=== PATIENT | female | born 1985 | race Caucasian/White ===

== ENCOUNTER 2016-09-23 12:39 | Emergency (ER) | payer SELFPAY ==
[2016-09-23 12:44] VITALS: TEMP 97.6; BMI 23.5
--- NOTE | 2016-09-23 12:50 | PDOC ---
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 The patient states the pain started last night. She notes she was unable to sleep because of the pain. 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 She reports she had an ultrasound done in the office and her ASSOCIATE PROFESSOR OF COUNSELING was unable to visualize the ovary. She reports the cyst has grown since her last ultrasound and the Doctor is concerned the ovary is tearing so she sent her to the ED for another ultrasound and further evaluation. The patient reports she is in excruciating pain. The patient denies chest pain, SOB The patient denies back pain, dysuria, hematuria The patient denies nausea, vomiting, diarrhea PCP: Dr. Sanket Rausch ASSOCIATE PROFESSOR OF COUNSELING: Dr. Haider <Felicia Lopes - Last Filed: 09/23/16 16:13> - General Chief Complaint: Pain Stated Complaint: PAIN, PCP SENT Time Seen by Provider: 09/23/16 12:49 Past History - Past Medical History Anemia: No Asthma: No COPD: No Suicide Attempt (Hx): No Other medical history: dermoid left ovarian - Surgical History Appendectomy: Yes - Reproductive History (#): 2 Para: 0 Cervical CA: No Dysfunctional Uterine Bleeding: No Ectopic : No Endometrial CA: No Polycystic Ovaries: No Therapeutic (s) & number: No Tubal Ligation: No Spontaneous : 0 - Immunization History Immunization Up to Date: Yes - Psycho/Social/Smoking Cessation Hx Anxiety: No Suicidal Ideation: No Smoking History: Never smoked Have you smoked in the past 12 months: Yes Number of Cigarettes Smoked Daily: 0 If you are a former smoker, when did you quit?: 05/25/14 Information on smoking cessation initiated: No 'Breaking Loose' booklet given: 04/20/14 Hx Alcohol Use: No Drug/Substance Use Hx: No Substance Use Type: None Hx Substance Use Treatment: No <Aram Gómez - Last Filed: 09/23/16 15:44> <Felicia Lopes - Last Filed: 09/23/16 16:13> - Past Medical History Allergies/Adverse Reactions: Allergies Allergy/AdvReac Type Severity Reaction Status Date / Time No Known Drug Allergies Allergy Verified 09/23/16 12:41 Home Medications: Ambulatory Orders Ibuprofen 800 mg PO TID #30 tablet 09/23/16 Ondansetron [Zofran *Odt*] 8 mg SL TID #30 od.tablet MDD 3 09/23/16 Oxycodone HCl/Acetaminophen [Percocet 5-325 mg Tablet] 1 - 2 tab PO Q6H #20 tablet MDD 4 09/23/16 Review of Systems - Review of Systems Able to Perform ROS?: Yes Comments:: 09/23/16 13:26 GENERAL/CONSTITUTIONAL: No fever or chills. No weakness. HEAD, EYES, EARS, NOSE AND THROAT: No change in vision. No ear pain or discharge. No sore throat. CARDIOVASCULAR: No chest pain or shortness of breath. RESPIRATORY: No cough, wheezing, or hemoptysis. GASTROINTESTINAL: +LLQ abdominal pain. No nausea, vomiting, diarrhea or constipation. GENITOURINARY: No dysuria, frequency, or change in urination. MUSCULOSKELETAL: No joint or muscle swelling or pain. No neck or back pain. SKIN: No rash NEUROLOGIC: No headache, vertigo, loss of consciousness, or change in strength/ sensation. ENDOCRINE: No increased thirst. No abnormal weight change. HEMATOLOGIC/LYMPHATIC: No anemia, easy bleeding, or history of blood clots. ALLERGIC/IMMUNOLOGIC: No hives or skin allergy. <Felicia Lopes - Last Filed: 09/23/16 16:13> *Physical Exam - Vital Signs Last Vital Signs Temp Pulse Resp BP Pulse Ox 97.6 F 97 H 18 153/92 100 09/23/16 12:41 09/23/16 12:41 09/23/16 12:41 09/23/16 12:41 09/23/16 12:41 <Aram Gómez - Last Filed: 09/23/16 15:44> - Vital Signs Last Vital Signs Temp Pulse Resp BP Pulse Ox 97.6 F 97 H 18 153/92 100 09/23/16 12:41 09/23/16 12:41 09/23/16 12:41 09/23/16 12:41 09/23/16 12:41 - Physical Exam Comments: 09/23/16 13:26 GENERAL: Awake, alert, and fully oriented, in no acute distress HEAD: No signs of trauma EYES: PERRLA, EOMI, sclera anicteric, conjunctiva clear ENT: Auricles normal inspection, hearing grossly normal, nares patent, oropharynx clear without exudates. Moist mucosa NECK: Normal ROM, supple, no lymphadenopathy, JVD, or masses LUNGS: Breath sounds equal, clear to auscultation bilaterally. No wheezes, and no crackles HEART: Regular rate and rhythm, normal S1 and S2, no murmurs, rubs or gallops ABDOMEN: +Mild tenderness to palpation to the LLQ. Soft, nontender, normoactive bowel sounds. No guarding, no rebound. No masses EXTREMITIES: Normal range of motion, no edema. No clubbing or cyanosis. No cords, erythema, or tenderness NEUROLOGICAL: Cranial nerves II through XII grossly intact. Normal speech, normal gait SKIN: Warm, Dry, normal turgor, no rashes or lesions noted. <Felicia Lopes - Last Filed: 09/23/16 16:13> ED Treatment Course - RADIOLOGY Radiograph Interpretation: 09/23/16 15:05 Pelvis ultrasound, transvesical and transvaginal. Compared to prior examination dated 05/25/2016 The uterus is anteverted measuring 7.6 x 3.7 cm endometrial stripe is within normal limits in thickness measuring 5 mm. The right ovary measures 2.4 x 2 cm and it appears unremarkable with normal vascular flow. In the left adnexa, the left ovary measures 4.3 x 3.5 cm with a cyst measuring 3.5 x 2.7 cm and a complex hypoechoic and echogenic masslike lesion measuring 2.7 x 2 cm that is suggestive of a dermoid. There is normal peripheral vascular flow in the left ovary No free fluid in the cul-de-sac IMPRESSION: Complex partially echogenic left ovarian mass measuring 2.7 x 2 cm compatible with previously described dermoid that was also seen on prior CT scan of the abdomen dated 2015. Left ovarian cyst measuring 3.5 x 2.7 cm. Normal vascular flow without evidence of torsion. Normal-appearing uterus and right ovary Reported By: Mona Darden MD 09/23/16 [id number] <Felicia Lopes - Last Filed: 09/23/16 16:13> Medical Decision Making - Medical Decision Making 09/23/16 15:43 Multiple attempts were made to contact Dr. Kalina Haider to convey the results of the ultrasound. No answer. Will DC home and have patient follow up with her tomorrow. 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 The patient reports her pain is significant while in the ED. The plan for the patient is to order a pelvic ultrasound, transvesical and transvaginal ultrasound. The ultrasound shows left ovarian cyst measuring 3.5 x 2.7 cm. Normal vascular flow without evidence of torsion. Normal-appearing uterus and right ovary. Dr. Haider called back and would the patient to follow up with the clinic. <Felicia Lopes - Last Filed: 09/23/16 16:13> *DC/Admit/Observation/Transfer - Discharge Dispostion Admit: No - Attestations Physician Attestion: 09/23/16 12:49 I, Dr. Aram Gómez, attest that this document has been prepared under my direction and personally reviewed by me in its entirety. I further attest, that it accurately reflects all work, treatment, procedures and medical decision -making performed by me. <Aram Gómez - Last Filed: 09/23/16 15:44> - Attestations Scribe Attestion: 09/23/16 13:13 Documentation prepared by Felicia Lopes, acting as medical office technologist for Aram Gómez MD/DO. <Felicia Lopes - Last Filed: 09/23/16 16:13> Diagnosis at time of Disposition: Dermoid cyst - Discharge Dispostion Disposition: HOME Condition at time of disposition: Good - Prescriptions Prescriptions: Ibuprofen 800 mg PO TID #30 tablet Oxycodone HCl/Acetaminophen [Percocet 5-325 mg Tablet] 1 - 2 tab PO Q6H #20 tablet MDD 4 Ondansetron [Zofran *Odt*] 8 mg SL TID #30 od.tablet MDD 3 - Referrals Referrals: Sanket Rasuch MD [Primary Care Provider] -
[2016-09-23] MEDS ORDERED: OXYCODONE/APAP 5/325MG COMBO TABLET PO ONE (12:59)
[2016-09-23] MEDS ORDERED: ONDANSETRON *ODT* 4 MG TABLET SL ONE (12:59)
[2016-09-23 13:29] LABS: URINE APPEARANCE CLEAR; URINE BILIRUBIN NEGATIVE (NEGATIVE); URINE BLOOD NEGATIVE (NEGATIVE); URINE COLOR STRAW; URINE GLUCOSE (UA) NEGATIVE (NEGATIVE); URINE KETONE NEGATIVE (NEGATIVE); URINE LEUK ESTERASE NEGATIVE (NEGATIVE); URINE NITRITE NEGATIVE (NEGATIVE); URINE PROTEIN NEGATIVE (NEGATIVE); URINE UROBILINOGEN NEGATIVE E.U./dl (0.2-1.0)
[2016-09-23] MEDS ORDERED: OXYCODONE/APAP 5/325MG COMBO TABLET ONE (13:33)
[2016-09-23] MEDS ORDERED: ONDANSETRON *ODT* 4 MG TABLET ONE (13:34)
[2016-09-23 14:56] VITALS: BP 120/80; PULSE 72
[2016-09-23] MEDS ORDERED: KETOROLAC TROMETHAMINE 60 MG/2 ML VIAL IM ONE (15:32)
[2016-09-23] MEDS ORDERED: KETOROLAC TROMETHAMINE 60 MG/2 ML VIAL ONE (15:37)
== END 2016-09-23 16:13 | disposition home or self-care (01) ==
LOC: JER 12:39
PROC: 3E0233Z Introduction of Anti-inflammatory into Muscle, Percutaneous Approach (ICD-10-PCS; principal; 2016-09-23)
DX: D27.1 Benign neoplasm of left ovary (principal)
CPT/HCPCS: 76830-TC; 76856-TC; 81003; 84703; 99282-25

== ENCOUNTER 2016-10-23 18:29 | Emergency (ER) | payer OTHER ==
[2016-10-23 18:40] VITALS: BMI 23.5
--- NOTE | 2016-10-23 19:45 | PDOC ---
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 Patient states she is experiencing nausea, and dysuria secondary to the pain. She states she has taken Tylenol PM and Motrin with no alleviation. She denies urinary frequency, urgency. SHe denies fever, chills, vomiting, diarrhea, hematochezia. Patient was here last month for similar pain. She had an ultrasound that showed a 3.5 x 2.7 cm left ovarian cyst. She states her PCP had done surgery to partly remove her left ovarian cyst but not the whoel ovary due to insurance issues. Surgical Hx: Appendectomy <Kade Jane - Last Filed: 10/23/16 20:12> <Chanelle Sykes - Last Filed: 10/23/16 23:36> - General Chief Complaint: Pain Stated Complaint: ABD PAIN Time Seen by Provider: 10/23/16 19:36 Past History <Kade Jane - Last Filed: 10/23/16 20:12> - Past Medical History Anemia: No Asthma: No COPD: No Suicide Attempt (Hx): No Other medical history: lt ovary dermoid cyst - Surgical History Appendectomy: Yes - Reproductive History (#): 2 Para: 0 Cervical CA: No Dysfunctional Uterine Bleeding: No Ectopic : No Endometrial CA: No Polycystic Ovaries: No Therapeutic (s) & number: No Tubal Ligation: No Spontaneous : 0 - Immunization History Immunization Up to Date: Yes - Psycho/Social/Smoking Cessation Hx Anxiety: No Suicidal Ideation: No Smoking History: Never smoked Have you smoked in the past 12 months: No Number of Cigarettes Smoked Daily: 0 If you are a former smoker, when did you quit?: 05/25/14 Information on smoking cessation initiated: No 'Breaking Loose' booklet given: 04/20/14 Hx Alcohol Use: No Drug/Substance Use Hx: No Substance Use Type: None Hx Substance Use Treatment: No <Chanelle Sykes - Last Filed: 10/23/16 23:36> - Past Medical History Allergies/Adverse Reactions: Allergies Allergy/AdvReac Type Severity Reaction Status Date / Time No Known Drug Allergies Allergy Verified 10/23/16 18:36 Home Medications: Ambulatory Orders NK [No Known Home Medication] 10/23/16 Review of Systems - Review of Systems Able to Perform ROS?: Yes Comments:: 10/23/16 20:12 GENERAL/CONSTITUTIONAL: No fever or chills. No weakness. HEAD, EYES, EARS, NOSE AND THROAT: No change in vision. No ear pain or discharge. No sore throat. CARDIOVASCULAR: No chest pain or shortness of breath. RESPIRATORY: No cough, wheezing, or hemoptysis. GASTROINTESTINAL: + nausea. No vomiting, diarrhea or constipation. GENITOURINARY: + dysuria. LLQ quadrant pain. No frequency, or change in urination. MUSCULOSKELETAL: No joint or muscle swelling or pain. No neck or back pain. SKIN: No rash NEUROLOGIC: No headache, vertigo, loss of consciousness, or change in strength/ sensation. ENDOCRINE: No increased thirst. No abnormal weight change. HEMATOLOGIC/LYMPHATIC: No anemia, easy bleeding, or history of blood clots. ALLERGIC/IMMUNOLOGIC: No hives or skin allergy. <Kade Jane - Last Filed: 10/23/16 20:12> *Physical Exam - Vital Signs Last Vital Signs Temp Pulse Resp BP Pulse Ox 97.8 F 100 H 18 140/79 100 10/23/16 18:37 10/23/16 18:37 10/23/16 18:37 10/23/16 18:37 10/23/16 18:37 - Physical Exam Comments: 10/23/16 20:12 GENERAL: Awake, alert, and fully oriented, in no acute distress HEAD: No signs of trauma EYES: PERRLA, EOMI, sclera anicteric, conjunctiva clear ENT: Auricles normal inspection, hearing grossly normal, nares patent, oropharynx clear without exudates. Moist mucosa NECK: Normal ROM, supple, no lymphadenopathy, JVD, or masses LUNGS: Breath sounds equal, clear to auscultation bilaterally. No wheezes, and no crackles HEART: Regular rate and rhythm, normal S1 and S2, no murmurs, rubs or gallops ABDOMEN: Minimal LLQ tenderness. Soft, normoactive bowel sounds. No guarding, no rebound. No masses EXTREMITIES: Normal range of motion, no edema. No clubbing or cyanosis. No cords, erythema, or tenderness NEUROLOGICAL: Cranial nerves II through XII grossly intact. Normal speech, normal gait SKIN: Warm, Dry, normal turgor, no rashes or lesions noted. <Kade Jane - Last Filed: 10/23/16 20:12> - Vital Signs Last Vital Signs Temp Pulse Resp BP Pulse Ox 97.8 F 100 H 18 140/79 100 10/23/16 18:37 10/23/16 18:37 10/23/16 18:37 10/23/16 18:37 10/23/16 18:37 <Chanelle Sykes - Last Filed: 10/23/16 23:36> ED Treatment Course - LABORATORY CBC & Chemistry Diagram: 10/23/16 20:00 10/23/16 20:00 <Chanelle Sykes - Last Filed: 10/23/16 23:36> Medical Decision Making - Medical Decision Making 10/23/16 21:30 Pt comes with LLQ pain; she has slight dysuria, but she states that this is the pain that she gets with her ovarian cysts. She has a PMHx of ovarian cysts and she states that she has an appointment scheduled with her LOCOMOTIVE ENGINEER for removal of the cyst next week, but she is in pain so she came to the ER today for evaluation. Pt has nausea, but no vomiting and no fever and no flank pain. She has a normal exam. Minimal LLQ pain, no rebound and no guarding. UA is normal. Chem and WBC also normal. Awaiting results of her sonogram. 10/23/16 23:35 Patient Name: Yanet Begum THIS IS A PRELIMINARY REPORT FROM [facility] DATE OF SERVICE: 2016-10-23 20:38:14.0 IMAGES: 27 EXAM: PELVIS ULTRASOUND AND OVARIAN DUPLEX TRANSABDOMINAL TECHNIQUE: Transabdominal pelvic sonography with duplex sonography performed of the ovaries. HISTORY: Rule out left ovarian cyst. Pain. Rule out torsion. COMPARISON: CT of the abdomen and pelvis dated . FINDINGS: UTERUS: Uterus is anteverted. Uterus measures 7.2 x 3.9 x 5.2 cm. No uterine mass is seen. ENDOMETRIUM: Endometrial canal measures 0.6 cm in thickness. No endometrial mass or fluid seen. OVARIES: Right ovary measures 2.7 x 1.8 x 2.7 cm. Left ovary measures 4.8 x 2.7 x 4.5 cm. Left ovary contains a complex cyst with internal fatty density measuring 2.9 x 2.7 x 3.7 cm in size Appropriate vascular Doppler flow is documented to both ovaries. PELVIS: There is no significant free fluid noted in the cul de sac. IMPRESSION: 1. Left ovarian dermoid. This is noted in retrospect on prior CT of 06/02/2016. 2. No evidence of ovarian torsion. THIS DOCUMENT HAS BEEN ELECTRONICALLY SIGNED <Chanelle Sykes - Last Filed: 10/23/16 23:36> *DC/Admit/Observation/Transfer - Attestations Scribe Attestion: 10/23/16 20:15 Documentation prepared by Kade Jane, acting as medical equipment technician for Chanelle Sykes MD. <Kade Jane - Last Filed: 10/23/16 20:12> - Discharge Dispostion Admit: No <Chanelle Sykes - Last Filed: 10/23/16 23:36> Diagnosis at time of Disposition: Ovarian cyst - Discharge Dispostion Disposition: HOME Condition at time of disposition: Stable - Referrals Referrals: Sanket Rausch MD [Primary Care Provider] - - Patient Instructions Printed Discharge Instructions: Ovarian Cyst - Post Discharge Activity Work/School Note: Back to Work
[2016-10-23] MEDS ORDERED: morphine CARPU-JECT 2 MG/1 ML DISP.SYRIN IVPUSH ONE (19:51)
[2016-10-23] MEDS ORDERED: morphine CARPU-JECT 2 MG/1 ML DISP.SYRIN ONE (20:03)
[2016-10-23 20:17] LABS: BASOPHIL 0.8 % (0-2.0); EOSINOPHIL 2.4 % (0-4.5); MCH 31.4 pg (25.7-33.7); MCHC 35.1 g/dl (32.0-36.0); MEAN CELL VOLUME 89.3 fl (80-96); MEAN PLT VOLUME 7.2 fl (7.5-11.1); PLATELET COUNT 278 K/MM3 (134-434); RDW 11.9 % (11.6-15.6); WHITE BLOOD COUNT 6.8 K/mm3 (4.0-10.0)
[2016-10-23 20:18] LABS: URINE APPEARANCE CLEAR; URINE BILIRUBIN NEGATIVE (NEGATIVE); URINE BLOOD NEGATIVE (NEGATIVE); URINE COLOR LTYELLOW; URINE GLUCOSE (UA) NEGATIVE (NEGATIVE); URINE KETONE NEGATIVE (NEGATIVE); URINE LEUK ESTERASE NEGATIVE (NEGATIVE); URINE NITRITE NEGATIVE (NEGATIVE); URINE PROTEIN NEGATIVE (NEGATIVE); URINE UROBILINOGEN 2.0 E.U/dl E.U./dl (0.2-1.0)
[2016-10-23 20:39] LABS: ALBUMIN 3.9 g/dl (3.4-5.0); ALK PHOS 79 U/L (45-117); ANION GAP 10 (8-16); BILIRUBIN,TOTAL 0.4 mg/dL (0.2-1.0); CALCIUM 8.3 mg/dL (8.5-10.1); CO2 26 mmol/L (21-32); GLUCOSE,RANDOM 94 mg/dL (74-106); SGOT/AST 17 U/L (15-37); SGPT/ALT 26 U/L (12-78); TOT PROT 6.9 g/dl (6.4-8.2)
[2016-10-23] MEDS ORDERED: KETOROLAC TROMETHAMINE 30 MG/1 ML VIAL ONE (22:45)
[2016-10-23] MEDS ORDERED: KETOROLAC TROMETHAMINE 30 MG/1 ML VIAL IVPUSH ONE (22:45)
[2016-10-23] MEDS ORDERED: SODIUM CHLORIDE 0.9% 500 ML INFUS.BAG IV ONE (22:45)
[2016-10-23 23:39] VITALS: BP 114/69; PULSE 88; TEMP 97.9
== END 2016-10-23 23:39 | disposition home or self-care (01) ==
LOC: JER 18:29
PROC: 3E033NZ Introduction of Analgesics, Hypnotics, Sedatives into Peripheral Vein, Percutaneous Approach (ICD-10-PCS; principal; 2016-10-23)
PROC: 3E0333Z Introduction of Anti-inflammatory into Peripheral Vein, Percutaneous Approach (ICD-10-PCS; 2016-10-23)
DX: N83.202 Unspecified ovarian cyst, left side (principal)
CPT/HCPCS: 36415; 76856-TC; 80053; 81003; 85025; 96374; 96375; 99283-25

== ENCOUNTER 2017-07-31 20:04 | Emergency (ER) | payer OTHER ==
[2017-07-31 20:16] VITALS: BP 121/79; PULSE 100; TEMP 98.9; BMI 23.5
--- NOTE | 2017-07-31 21:26 | PDOC ---
Attending Attestation - Resident Resident Name: Arvind Stephen - ED Attending Attestation I have performed the following: I have examined & evaluated the patient, The case was reviewed & discussed with the resident, I agree w/resident's findings & plan - HPI HPI: 07/31/17 23:00 Pt has been eating salads and veggies. She has gas. and trapped gas. No rebound and minimal guarding - Physicial Exam PE: 07/31/17 23:04 Agree with resident exam. Pt has gassy pain. - Medical Decision Making 07/31/17 22:55 Patient Name: KB ESTRADA THIS IS A PRELIMINARY REPORT FROM [facility] DATE OF SERVICE: 2017-07-31 21:17:29 IMAGES: 50 EXAM: Ultrasound abdomen, right upper quadrant HISTORY: Right upper quadrant pain COMPARISON: None. FINDINGS: 1. The posterior body and tail of the pancreas is not well-visualized due to artifact. The visualized portion of the pancreas is unremarkable. 2. The abdominal aorta is normal caliber. 3. No evidence of hydronephrosis or urinary tract calculi. 4. No demonstration of gallstones and no ultrasound evidence of acute cholecystitis. 5. The common bile duct is normal caliber. 6. The liver is unremarkable in appearance. 07/31/17 23:04 labs normal. Pt will be treated with lactulose and home with miralax.
[2017-07-31 21:31] LABS: BASO % 1.5 % (0-2.0); HEMATOCRIT 42.2 % (32.4-45.2); HEMOGLOBIN 14.5 GM/dL (10.7-15.3); LYMPH % 53.2 % (8-40); MCH 31.6 pg (25.7-33.7); MCHC 34.5 g/dl (32.0-36.0); MEAN CELL VOLUME 91.8 fl (80-96); MEAN PLT VOLUME 7.3 fl (7.5-11.1); MONO % 7.6 % (3.8-10.2); NEUT % 34.7 % (42.8-82.8); PLATELET COUNT 310 K/MM3 (134-434); RDW 12.4 % (11.6-15.6); WHITE BLOOD COUNT 5.7 K/mm3 (4.0-10.0)
[2017-07-31 21:34] LABS: URINE APPEARANCE CLOUDY; URINE BILIRUBIN NEGATIVE (NEGATIVE); URINE BLOOD NEGATIVE (NEGATIVE); URINE COLOR YELLOW; URINE GLUCOSE (UA) NEGATIVE (NEGATIVE); URINE KETONE NEGATIVE (NEGATIVE); URINE LEUK ESTERASE NEGATIVE (NEGATIVE); URINE NITRITE NEGATIVE (NEGATIVE)
--- NOTE | 2017-07-31 21:37 | PDOC ---
History of Present Illness - General Chief Complaint: Pain Stated Complaint: PAIN Time Seen by Provider: 07/31/17 20:43 History Source: Patient Exam Limitations: No Limitations - History of Present Illness Initial Comments: 07/31/17 21:27 The patient is a 32F with a PMH of ovarian cyst removal who presents with 3 days of abdominal pain. The patient states that she began having RUQ pain on Tuesday that was worse after food. On Tuesday the pain continued and she tried taking acetaminophen and ibuprofen with no relief. She woke up this morning and has had consistent pain that is not relenting. She describes the pain as 9/10 stabbing pain which starts in her RUQ and radiates to her back and LUQ. The pain is worse with food and is not relieved by anything. It is now a constant pain. Past History - Past Medical History Allergies/Adverse Reactions: Allergies Allergy/AdvReac Type Severity Reaction Status Date / Time No Known Drug Allergies Allergy Verified 11/04/16 06:43 Home Medications: Ambulatory Orders Acetaminophen [Tylenol -] 1,000 mg PO PRN PRN 11/01/16 Polyethylene Glycol 3350 [Miralax (For Bowel Prep) -] 17 gm PO DAILY #1 bottle 07/31/17 Anemia: No Asthma: No COPD: No - Surgical History Appendectomy: Yes - Reproductive History (#): 2 Para: 0 Cervical CA: No Dysfunctional Uterine Bleeding: No Ectopic : No Endometrial CA: No Polycystic Ovaries: No Therapeutic (s) & number: No Tubal Ligation: No Spontaneous : 0 - Immunization History Immunization Up to Date: Yes - Suicide/Smoking/Psychosocial Hx Smoking History: Former smoker Have you smoked in the past 12 months: No Number of Cigarettes Smoked Daily: 0 If you are a former smoker, when did you quit?: 05/25/14 Information on smoking cessation initiated: No 'Breaking Loose' booklet given: 04/20/14 Hx Alcohol Use: No Drug/Substance Use Hx: No Substance Use Type: None Hx Substance Use Treatment: No Review of Systems - Review of Systems Able to Perform ROS?: Yes Comments:: 07/31/17 21:42 GENERAL/CONSTITUTIONAL: No fever or chills. No weakness. HEAD, EYES, EARS, NOSE AND THROAT: No change in vision. No ear pain or discharge. No sore throat. GASTROINTESTINAL: Positive for abdominal pain and diarrhea. No nausea, vomiting , or constipation. GENITOURINARY: No dysuria, frequency, hematuria, or change in urination. CARDIOVASCULAR: No chest pain, palpitations, or lightheadedness. RESPIRATORY: No cough, wheezing, shortness of breath, or hemoptysis. MUSCULOSKELETAL: No joint or muscle swelling or pain. No neck or back pain. SKIN: No rash or lesions. NEUROLOGIC: No headache, numbness, tingling, weakness, loss of consciousness, or change in strength/sensation. ENDOCRINE: No increased thirst. No abnormal weight change. HEMATOLOGIC/LYMPHATIC: No anemia, easy bleeding, or history of blood clots. ALLERGIC/IMMUNOLOGIC: No hives or skin allergy. Is the patient limited Kiswahili proficient: No *Physical Exam - Vital Signs Last Vital Signs Temp Pulse Resp BP Pulse Ox 98.9 F 100 H 16 121/79 100 07/31/17 20:12 07/31/17 20:12 07/31/17 20:12 07/31/17 20:12 07/31/17 20:12 - Physical Exam Comments: 07/31/17 21:42 GENERAL: Well developed, well nourished. Awake and alert. No acute distress. HEENT: Normocephalic, atraumatic. Hearing grossly normal. Moist mucous membranes. NECK: Supple. Full ROM. No JVD. CARDIOVASCULAR: Regular rate and rhythm. No murmurs, rubs, or gallops. Distal pulses are 2+ and symmetric. PULMONARY: No evidence of respiratory distress. Lungs clear to auscultation bilaterally. No wheezing, rales or rhonchi. ABDOMINAL: Soft. Tender to palpation over RUQ and LUQ. Positive mcgrath's sign. Non-distended. No rebound or guarding. GENITOURINARY: No CVA tenderness bilaterally. MUSCULOSKELETAL: Normal range of motion at all joints. No bony deformities or tenderness. EXTREMITIES: No cyanosis. No clubbing. No edema. No calf tenderness. SKIN: Warm and dry. Normal capillary refill. No rashes. No jaundice. NEUROLOGICAL: Alert, awake, appropriate. Cranial nerves 2-12 intact. Normal speech. Gait is normal without ataxia. PSYCHIATRIC: Cooperative. Good eye contact. Appropriate mood and affect. ED Treatment Course - LABORATORY CBC & Chemistry Diagram: 07/31/17 21:16 07/31/17 21:16 - RADIOLOGY Radiology Studies Ordered: Category Date Time Status ABDOMEN US -LIMITED [US] Stat Ultrasound 07/31/17 21:08 Ordered Medical Decision Making - Medical Decision Making 07/31/17 21:43 The patient is a 32F with a PMH of ovarian cyst removal and appendectomy who presents to the ED with complaints of RUQ pain which radiates to her LUQ. On my differential is cholecystitis and duodenal ulcer. LMP ended on Tuesday so I have a lower suspicion for ectopic . Pending labs and RUQ U/S. 07/31/17 22:54 US negative for acute cholecystitis. Toradol given for pain control. CBC and CMP WNL. UA showing 2.0 urobilinogen. 07/31/17 23:12 Discussed with attending, who believes it is abdominal gas. Will give lactulose and d/c with miralax. *DC/Admit/Observation/Transfer Diagnosis at time of Disposition: Abdominal pain Qualifiers: Abdominal location: right upper quadrant Qualified Code(s): R10.11 - Right upper quadrant pain - Discharge Dispostion Disposition: HOME Condition at time of disposition: Stable Admit: No - Referrals Referrals: Sanket Rausch MD [Primary Care Provider] - - Patient Instructions Printed Discharge Instructions: Intestinal Gas (Alternative Therapy) Additional Instructions: Please return to the ER if symptoms persist, worsen, or new symptoms arise. Please follow up with your primary care physician in 2-3 days. Please return to the ER if you have any signs or symptoms of chest pain, shortness of breath, uncontrollable fever, chills, nausea, vomiting, numbness, tingling, or weakness in any part of your body, changes in vision, or slurred speech. Please take your medications as prescribed. - Post Discharge Activity
[2017-07-31 21:58] LABS: URINE PROTEIN 1+ (NEGATIVE)
[2017-07-31 22:04] LABS: ALBUMIN 4.2 g/dl (3.4-5.0); ALK PHOS 71 U/L (45-117); ANION GAP 9 (8-16); BILIRUBIN,TOTAL 0.2 mg/dL (0.2-1.0); BLOOD UREA NITROGEN 13 mg/dL (7-18); CALCIUM 8.7 mg/dL (8.5-10.1); CHLORIDE 105 mmol/L (98-107); CO2 26 mmol/L (21-32); CREATININE 0.8 mg/dL (0.55-1.02); EPI CELLS RARE /HPF (FEW); GLUCOSE,RANDOM 86 mg/dL (74-106); LIPASE 215 U/L (73-393); POTASSIUM 3.9 mmol/L (3.5-5.1); SGOT/AST 15 U/L (15-37); SGPT/ALT 18 U/L (12-78); SODIUM 140 mmol/L (136-145); TOT PROT 7.3 g/dl (6.4-8.2); URINE BACTERIA RARE /hpf (NONE SEEN)
[2017-07-31] MEDS ORDERED: KETOROLAC TROMETHAMINE 30 MG/1 ML VIAL ONE (22:43)
[2017-07-31] MEDS ORDERED: LACTULOSE 20 GM/30 ML UDC (FOR ORAL USE ONLY) PO ONE (23:01)
[2017-07-31] MEDS ORDERED: LACTULOSE 20 GM/30 ML UDC (FOR ORAL USE ONLY) ONE (23:23)
== END 2017-07-31 23:19 | disposition home or self-care (01) ==
LOC: JER 20:04
DX: R10.11 Right upper quadrant pain (principal); R14.1 Gas pain
CPT/HCPCS: 36415; 76705-TC; 80053; 81003; 81015; 83690; 84703; 85025; 99281-25

== ENCOUNTER 2017-09-13 20:30 | Emergency (ER) | payer BC, OTHER ==
--- NOTE | 2017-09-13 20:43 | PDOC ---
Rapid Medical Evaluation Time Seen by Provider: 09/13/17 20:36 Medical Evaluation: Allergies Allergy/AdvReac Type Severity Reaction Status Date / Time No Known Drug Allergies Allergy Verified 11/04/16 06:43 09/13/17 20:41 I have performed a brief in-person evaluation of this patient. The patient presents with a chief complaint of: vaginal bleeding and fever s/p spontaneous Pertinent physical exam findings: ABD SNTND. I have ordered the following: labs The patient will proceed to the ED for further evaluation. Discharge Disposition - Diagnosis Vaginal bleeding - Referrals - Patient Instructions - Post Discharge Activity
[2017-09-13 20:50] VITALS: BP 121/75; PULSE 128; TEMP 101.5; BMI 23.5
[2017-09-13 21:11] LABS: BASO % 0.3 % (0-2.0); EOS % 0.6 % (0-4.5); HEMATOCRIT 41.7 % (32.4-45.2); HEMOGLOBIN 13.8 GM/dL (10.7-15.3); LYMPH % 5.7 % (8-40); MCH 30.6 pg (25.7-33.7); MEAN CELL VOLUME 92.7 fl (80-96); MEAN PLT VOLUME 7.5 fl (7.5-11.1); MONO % 3.5 % (3.8-10.2); NEUT % 89.9 % (42.8-82.8); PLATELET COUNT 290 K/MM3 (134-434); RDW 12.1 % (11.6-15.6); WHITE BLOOD COUNT 8.4 K/mm3 (4.0-10.0)
[2017-09-13 21:31] LABS: URINE APPEARANCE CLEAR; URINE BILIRUBIN NEGATIVE (NEGATIVE); URINE BLOOD 1+ (NEGATIVE); URINE COLOR YELLOW; URINE GLUCOSE (UA) NEGATIVE (NEGATIVE); URINE KETONE NEGATIVE (NEGATIVE); URINE LEUK ESTERASE TRACE (NEGATIVE); URINE NITRITE NEGATIVE (NEGATIVE); URINE UROBILINOGEN 4.0 E.U/dl mg/dL (0.2-1.0)
[2017-09-13 21:36] LABS: URINE PROTEIN 1+ (NEGATIVE)
[2017-09-13 21:37] LABS: EPI CELLS FEW /HPF (FEW); URINE MUCUS RARE
[2017-09-13 21:44] LABS: ALBUMIN 4.3 g/dl (3.4-5.0); ANION GAP 8 (8-16); BILIRUBIN,TOTAL 0.6 mg/dL (0.2-1.0); BLOOD UREA NITROGEN 9 mg/dL (7-18); CALCIUM 8.4 mg/dL (8.5-10.1); CHLORIDE 103 mmol/L (98-107); CO2 25 mmol/L (21-32); CREATININE 0.7 mg/dL (0.55-1.02); GLUCOSE,RANDOM 102 mg/dL (74-106); POTASSIUM 3.9 mmol/L (3.5-5.1); SGOT/AST 13 U/L (15-37); SGPT/ALT 13 U/L (12-78); SODIUM 136 mmol/L (136-145); TOT PROT 7.3 g/dl (6.4-8.2)
[2017-09-13] MEDS ORDERED: SODIUM CHLORIDE 1,000 ML IV STA (21:54)
[2017-09-13 22:00] LABS: ALK PHOS 60 U/L (45-117)
--- NOTE | 2017-09-13 22:00 | PDOC ---
History of Present Illness - General History Source: Patient, Significant Other Exam Limitations: No Limitations - History of Present Illness Initial Comments: 09/13/17 22:05 The patient is a 32 year old female , with a significant past medical history of ovarian cyst removal, who presents to the emergency department with, nausea with emesis, fever (101.6 F), chills, vaginal bleeding and pelvic pain for approx. one day. The patient reports the pelvic pain radiates around to her back and down her legs bilaterally. The patient reports she has been feeling fine up until this morning. The patient reports she had a recent terminated this past September 09 (4 days ago) at 6 weeks and 2 days into . The patient reports she went to an urgent care today prior to arrival who stated she did not have the flu and advised her to come to the ED for evaluation. She denies recent dysuria, frequency, or urgency. She denies recent chest pain or shortness of breath. She denies recent cough or sore throat. She denies recent injury or trauma. Allergies: NKA Social History: Ex-smoker. . Surgical History: Left ovarian cystectomy. Appendectomy. Primary Care Physician: Dr. Sanket Rausch <Valentin Velazquez - Last Filed: 09/14/17 00:53> <Liliane Donohue - Last Filed: 09/14/17 03:04> - General Chief Complaint: Pain Stated Complaint: VAGINAL BLEEDING Time Seen by Provider: 09/13/17 20:36 Past History <Valentin Velazquez - Last Filed: 09/14/17 00:53> - Past Medical History Anemia: No Asthma: No COPD: No - Surgical History Appendectomy: Yes - Reproductive History (#): 2 Para: 0 Cervical CA: No Dysfunctional Uterine Bleeding: No Ectopic : No Endometrial CA: No Polycystic Ovaries: No Therapeutic (s) & number: No Tubal Ligation: No Spontaneous : 0 - Immunization History Immunization Up to Date: Yes - Suicide/Smoking/Psychosocial Hx Smoking History: Never smoked Have you smoked in the past 12 months: No Number of Cigarettes Smoked Daily: 0 If you are a former smoker, when did you quit?: 05/25/14 Information on smoking cessation initiated: No 'Breaking Loose' booklet given: 04/20/14 Hx Alcohol Use: No Drug/Substance Use Hx: No Substance Use Type: None Hx Substance Use Treatment: No <Liliane Donohue - Last Filed: 09/14/17 03:04> - Past Medical History Allergies/Adverse Reactions: Allergies Allergy/AdvReac Type Severity Reaction Status Date / Time No Known Drug Allergies Allergy Verified 09/13/17 20:47 Home Medications: Ambulatory Orders Acetaminophen [Tylenol -] 1,000 mg PO PRN PRN 11/01/16 Polyethylene Glycol 3350 [Miralax (For Bowel Prep) -] 17 gm PO DAILY #1 bottle 07/31/17 Doxycycline Monohydrate [Monodox] 100 mg PO Q12H #14 capsule 09/14/17 Review of Systems - Review of Systems Comments:: 09/13/17 22:11 CONSTITUTIONAL: Absent: +Fever. +Chills. No fatigue EYES: Absent: visual changes ENT: Absent: ear pain, no sore throat CARDIOVASCULAR: Absent: chest pain, no palpitations RESPIRATORY: Absent: cough, no SOB GI: Present: +Nausea. +Vomiting. Absent: No abdominal pain. No constipation, no diarrhea GENITOURINARY: Present: +Vaginal bleeding. Absent: dysuria, no frequency, no hematuria MUSKULOSKELETAL: Present: +Pelvic pain. Absent: back pain, no arthralgia, no myalgia SKIN: Absent: rash NEURO: Absent: headache <Valentin Velazquez - Last Filed: 09/14/17 00:53> *Physical Exam - Vital Signs Last Vital Signs Temp Pulse Resp BP Pulse Ox 101.5 F H 128 H 20 121/75 100 09/13/17 20:47 09/13/17 20:47 09/13/17 20:47 09/13/17 20:47 09/13/17 20:47 - Physical Exam Comments: 09/13/17 22:12 GENERAL: Well developed, well nourished. Awake and alert. No acute distress. HEENT: Normocephalic, atraumatic. PERRLA, EOMI. No conjunctival pallor. Sclera are non- icteric. Moist mucous membranes. Oropharynx is clear. NECK: Supple. Full ROM. No JVD. Carotid pulses 2+ and symmetric, without bruits. No thyromegaly. No lymphadenopathy. CARDIOVASCULAR: +Tachycardia. Regular rhythm. No murmurs, rubs, or gallops. Distal pulses are 2 + and symmetric. PULMONARY: No evidence of respiratory distress. Lungs clear to auscultation bilaterally. No wheezing, rales or rhonchi. ABDOMINAL: Soft. Non-tender. Non-distended. No rebound or guarding. No organomegaly. Normoactive bowel sounds. MUSCULOSKELETAL Normal range of motion at all joints. No bony deformities or tenderness. No CVA tenderness. EXTREMITIES: No cyanosis. No clubbing. No edema. No calf tenderness. SKIN: Warm and dry. Normal capillary refill. No rashes. No jaundice. NEUROLOGICAL: Alert, awake, appropriate. Cranial nerves 2-12 intact. No deficits to light touch and temperature in face, upper extremities and lower extremities. No motor deficits in the in face, upper extremities and lower extremities. Normoreflexic in the upper and lower extremities. Normal speech. Toes are down- going bilaterally. Gait is normal without ataxia. PSYCHIATRIC: Cooperative. Good eye contact. Appropriate mood and affect. <Valentin Velazquez - Last Filed: 09/14/17 00:53> - Vital Signs Last Vital Signs Temp Pulse Resp BP Pulse Ox 101.5 F H 128 H 20 121/75 100 09/13/17 20:47 09/13/17 20:47 09/13/17 20:47 09/13/17 20:47 09/13/17 20:47 <Liliane Donohue - Last Filed: 09/14/17 03:04> ED Treatment Course - LABORATORY CBC & Chemistry Diagram: 09/13/17 21:02 09/13/17 21:02 - ADDITIONAL ORDERS Additional order review: Laboratory Results 09/13/17 09/13/17 21:02 21:02 Lactic Acid 1.8 Urine Color Yellow Urine Appearance Clear Urine pH 8.0 Ur Specific [place] 1.023 Urine Protein 1+ H Urine Glucose (UA) Negative Urine Ketones Negative Urine Blood 1+ H Urine Nitrite Negative Urine Bilirubin Negative Urine Urobilinogen 4.0 e.u/dl H Ur Leukocyte Esterase Trace Urine WBC (Auto) None Urine RBC (Auto) 131 Ur Epithelial Cells Few Urine Mucus Rare 09/13/17 21:02 RBC 4.50 MCV 92.7 MCHC 33.0 RDW 12.1 MPV 7.5 Neutrophils % 89.9 H D Lymphocytes % 5.7 L D Monocytes % 3.5 L Eosinophils % 0.6 Basophils % 0.3 - RADIOLOGY Radiograph Interpretation: 09/14/17 00:53 Exam: Transvaginal ultrasound Doppler study of the right ovary HISTORY: Fever and pelvic pain. The medicine to and a week . COMPARISON: None. FINDINGS: The endometrium is slightly heterogeneous and borderline thickened to approximately 1.5 cm. Since the patient was apparently this needs followup to rule out any retained products, inflammation, or neoplasm. The remainder of the uterus is normal. Nabothian cyst noted. Normal right ovary with positive Doppler blood flow. No free fluid By history, the left ovary has been removed. Reported by Severo Guajardo MD <Valentin Velazquez - Last Filed: 09/14/17 00:53> - LABORATORY CBC & Chemistry Diagram: 09/13/17 21:02 09/13/17 21:02 - ADDITIONAL ORDERS Additional order review: Laboratory Results 09/13/17 09/13/17 21:02 21:02 Lactic Acid 1.8 Urine Color Yellow Urine Appearance Clear Urine pH 8.0 Ur Specific [place] 1.023 Urine Protein 1+ H Urine Glucose (UA) Negative Urine Ketones Negative Urine Blood 1+ H Urine Nitrite Negative Urine Bilirubin Negative Urine Urobilinogen 4.0 e.u/dl H Ur Leukocyte Esterase Trace Urine WBC (Auto) None Urine RBC (Auto) 131 Ur Epithelial Cells Few Urine Mucus Rare 09/13/17 21:02 RBC 4.50 MCV 92.7 MCHC 33.0 RDW 12.1 MPV 7.5 Neutrophils % 89.9 H D Lymphocytes % 5.7 L D Monocytes % 3.5 L Eosinophils % 0.6 Basophils % 0.3 <Liliane Donohue - Last Filed: 09/14/17 03:04> Medical Decision Making - Medical Decision Making 09/14/17 03:02 Past surgical history appendectomy, oophorectomy 40-year-old female presents with fever, nausea, vomiting and diarrhea and pelvic discomfort. She states that she went to an urgent care center and had a flu swab that was negative. She took misoprostol on Tuesday to terminate a 6 week and now has complaint of pelvic cramping Urinalysis is negative for UTI, but did show hematuria CBC is within normal limits. Beta-hCG was greater than 2000. 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 <Liliane Donohue - Last Filed: 09/14/17 03:04> *DC/Admit/Observation/Transfer - Attestations Scribe Attestion: 09/13/17 22:12 Documentation prepared by Valentin Velazquez, acting as medical imaging tech for Liliane Donohue MD. <Valentin Velazquez - Last Filed: 09/14/17 00:53> <Liliane Donohue - Last Filed: 09/14/17 03:04> Diagnosis at time of Disposition: Vaginal bleeding Fever Qualifiers: Fever type: due to other condition Qualified Code(s): R50.81 - Fever presenting with conditions classified elsewhere Nausea & vomiting Qualifiers: Vomiting type: unspecified Vomiting Intractability: unspecified Qualified Code( s): R11.2 - Nausea with vomiting, unspecified - Discharge Dispostion Disposition: HOME Condition at time of disposition: Stable - Prescriptions Prescriptions: Doxycycline Monohydrate [Monodox] 100 mg PO Q12H #14 capsule - Referrals Referrals: Sanket Rausch MD [Primary Care Provider] - - Patient Instructions Printed Discharge Instructions: DI for Vaginal Bleeding Additional Instructions: please take your antibiotics It is important to keep your appointment with the military science teacher Take Tylenol for pain and or fever Return to the emergency department for any worsening symptoms
[2017-09-13] MEDS ORDERED: ONDANSETRON 4 MG/2 ML VIAL IVPB ONE (22:03)
[2017-09-13] MEDS ORDERED: ACETAMINOPHEN 500 MG TABLET (FP) PO STA (22:04)
[2017-09-13] MEDS ORDERED: ACETAMINOPHEN 325 MG TABLET (FP) ONE (22:17)
[2017-09-13] MEDS ORDERED: ONDANSETRON 4 MG/2 ML VIAL ONE (22:17)
[2017-09-14] MEDS ORDERED: DOXYCYCLINE HYCLATE 100 MG CAPSULE PO ONE ×2 (00:58→01:06)
== END 2017-09-14 01:14 | disposition home or self-care (01) ==
LOC: JER 20:30
PROC: 3E0337Z Introduction of Electrolytic and Water Balance Substance into Peripheral Vein, Percutaneous Approach (ICD-10-PCS; principal; 2017-09-13)
PROC: 3E033GC Introduction of Other Therapeutic Substance into Peripheral Vein, Percutaneous Approach (ICD-10-PCS; 2017-09-13)
DX: O03.6 Delayed or excessive hemorrhage following complete or unspecified spontaneous abortion (principal); R50.9 Fever, unspecified
CPT/HCPCS: 36415; 76817-TC; 80053; 81003; 81015; 83605; 84702; 85025; 86850; 86900; 86901; 87040; 99284-25

== ENCOUNTER 2021-08-20 08:33 | Emergency (ER) | payer OTHER ==
[2021-08-20 08:36] VITALS: BMI 22.7
[2021-08-20] MEDS ORDERED: SODIUM CHLORIDE 1,000 ML IV STA (09:19)
[2021-08-20] MEDS ORDERED: ONDANSETRON 4 MG/2 ML VIAL IVPUSH ONE (09:19)
[2021-08-20] MEDS ORDERED: ACETAMINOPHEN 1000 MG/100 ML BAG IVPB ONE (09:19)
[2021-08-20 09:49] LABS: EOS % 4.1 % (0-4.5); HEMATOCRIT 45.8 % (32.4-45.2); HEMOGLOBIN 15.4 GM/dL (10.7-15.3); LYMPH % 31.8 % (8-40); MCH 32.6 pg (25.7-33.7); MCHC 33.6 g/dl (32.0-36.0); MEAN CELL VOLUME 96.9 fl (80-96); MEAN PLT VOLUME 7.5 fl (7.5-11.1); MONO % 7.1 % (3.8-10.2); PLATELET COUNT 340 10^3/uL (134-434); RBC 4.72 M/mm3 (3.60-5.2); RDW 12.5 % (11.6-15.6); WHITE BLOOD COUNT 5.2 K/mm3 (4.0-10.0)
[2021-08-20] MEDS ORDERED: ACETAMINOPHEN INJECTION 100 ML IVPB ONE (10:09)
[2021-08-20] MEDS ORDERED: ONDANSETRON 4 MG/2 ML VIAL ONE (10:10)
[2021-08-20 10:14] LABS: ALBUMIN 4.7 g/dl (3.4-5.0); CALCIUM 9.1 mg/dL (8.5-10.1)
[2021-08-20 10:15] LABS: BLOOD UREA NITROGEN 14.8 mg/dL (7-18)
[2021-08-20 10:18] LABS: CREATININE 0.8 mg/dL (0.55-1.3)
[2021-08-20 10:19] LABS: BILIRUBIN,TOTAL 0.6 mg/dL (0.2-1); TOT PROT 7.4 g/dl (6.4-8.2)
[2021-08-20 10:28] LABS: URINE APPEARANCE CLEAR; URINE BILIRUBIN NEGATIVE (NEGATIVE); URINE COLOR YELLOW; URINE GLUCOSE (UA) NEGATIVE (NEGATIVE); URINE KETONE TRACE (NEGATIVE); URINE LEUK ESTERASE NEGATIVE (NEGATIVE); URINE NITRITE NEGATIVE (NEGATIVE); URINE PROTEIN NEGATIVE (NEGATIVE)
[2021-08-20 10:31] LABS: HCG,QUALITATIVE URINE Negative
[2021-08-20 13:15] VITALS: BP 142/68; PULSE 72; TEMP 98.6
== END 2021-08-20 13:16 | disposition home or self-care (01) ==
LOC: JER 08:33
PROC: 3E033GC Introduction of Other Therapeutic Substance into Peripheral Vein, Percutaneous Approach (ICD-10-PCS; principal; 2021-08-20)
DX: R10.13 Epigastric pain (principal)
CPT/HCPCS: 36415; 76705-TC; 80053; 81003; 83690; 84703; 85025; 87086; 93005; 93010; 99285-25; J0131

== ENCOUNTER 2022-08-01 22:25 | Inpatient (IN) | payer OTHER ==
[2022-08-01] MEDS: ELECTROLYTE-148 SOLN 1,000 ML IV SCH (23:20)
[2022-08-01 23:43] LABS: BASO % 0.5 % (0-2.0); EOS % 1.3 % (0-4.5); HEMATOCRIT 38.7 % (32.4-45.2); HEMOGLOBIN 13.2 GM/dL (10.7-15.3); LYMPH % 25.5 % (8-40); MCH 31.5 pg (25.7-33.7); MEAN CELL VOLUME 92.7 fl (80-96); MEAN PLT VOLUME 7.6 fl (7.5-11.1); MONO % 7.7 % (3.8-10.2); PLATELET COUNT 251 10^3/uL (134-434); RBC 4.17 M/mm3 (3.60-5.2); RDW 14.4 % (11.6-15.6); WHITE BLOOD COUNT 8.4 K/mm3 (4.0-10.0)
[2022-08-01 23:51] LABS: INR 0.95 (0.83-1.09); PROTHROMBIN TIME (PATIENT) 10.9 SEC (9.7-13.0)
[2022-08-01 23:54] LABS: ACTIVATED PTT 26.1 SECONDS (25.2-36.5)
[2022-08-02 00:05] VITALS: BMI 27.1
[2022-08-02 00:12] LABS: CALCIUM 9.6 mg/dL (8.5-10.1)
[2022-08-02 00:13] LABS: BLOOD UREA NITROGEN 12.1 mg/dL (7-18)
[2022-08-02 00:16] LABS: CREATININE 0.7 mg/dL (0.55-1.3)
[2022-08-02] MEDS ORDERED: FENTANYL/BUPIVACAINE/NS/PF - PCEA - 50 ML DISP.SYRIN EP ONE ×3 (00:52→10:17)
[2022-08-02] MEDS ORDERED: BUPIVACAINE HCL/PF 0.25% (2.5MG/ML) 10 ML VIAL ONE ×2 (01:04→08:28)
[2022-08-02 01:11] LABS: HIV INTERPRETATION NEGATIVE (NEGATIVE)
[2022-08-02] MEDS: FENTANYL/BUPIVACAINE/NS/PF - PCEA - 50 ML DISP.SYRIN EP SCH ×3 (01:30→10:20)
[2022-08-02] MEDS ORDERED: NALOXONE HCL 0.4 MG/ML VIAL IVPUSH PRN (01:41)
[2022-08-02] MEDS ORDERED: OXYTOCIN 30 UNITS in 0.9% NS 30 UNIT/500 ML INFUS.BAG IVPB ONE (02:46)
[2022-08-02] MEDS ORDERED: OXYTOCIN 30 UNITS in 0.9% NS 30 UNIT/500 ML INFUS.BAG IVPB SCH (03:00)
[2022-08-02] MEDS ORDERED: LIDOCAINE HCL 1% PRESERVATIVE FREE - 30ML VIAL ONE (08:13)
[2022-08-02] MEDS ORDERED: OXYTOCIN 20 UNITS in 0.9% NS 20 UNIT/1,000 ML INFUS.BAG IV ONE (08:13)
[2022-08-02] MEDS ORDERED: FENTANYL CITRATE/PF 50 MCG/ML VIAL ONE (08:28)
[2022-08-02] MEDS: ELECTROLYTE-148 SOLN 1,000 ML IV SCH (09:00)
[2022-08-02] MEDS: oxyCODONE HCL 5 MG TABLET PO PRN ×2 (13:30→18:30)
[2022-08-02 13:55] LABS: CORD BASE EXCESS -5.8 mmol/L (0-2); CORD HCO3 21.4 mmHg (20-29); CORD PCO2 48.3 mmHg (30-78); CORD pH 7.265 (7.14-7.44)
[2022-08-02 13:57] LABS: CORD BASE EXCESS -5.7 mmol/L (0-2); CORD HCO3 23.3 mmHg (20-29); CORD PCO2 59.7 mmHg (30-78); CORD pH 7.209 (7.14-7.44)
[2022-08-02] MEDS ORDERED: BENZOCAINE 20% 57 GM BOTTLE TP PRN (14:05)
[2022-08-02] MEDS ORDERED: BISACODYL 10 MG SUPP.RECT RC PRN (14:05)
[2022-08-02] MEDS ORDERED: WITCH HAZEL 50% (TUCKS) 40 PAD/JAR PAD TP PRN (14:05)
[2022-08-02] MEDS ORDERED: BENZOCAINE 28 GM HEMORRHOIDAL OINTMENT TP PRN (14:05)
[2022-08-02] MEDS ORDERED: METHYLERGONOVINE MALEATE 0.2 MG/1 ML AMP IM PRN (14:05)
[2022-08-02] MEDS ORDERED: OXYTOCIN 20 UNITS in 0.9% NS 20 UNIT/1,000 ML INFUS.BAG IV SCH (14:15)
[2022-08-02] MEDS: IBUPROFEN 600 MG TABLET (FP) PO PRN (21:55)
[2022-08-02 22:05] VITALS: RESP 16
[2022-08-03] MEDS: oxyCODONE HCL 5 MG TABLET PO PRN ×2 (00:06→22:35)
[2022-08-03] MEDS: IBUPROFEN 600 MG TABLET (FP) PO PRN ×4 (04:47→20:14)
[2022-08-03 07:09] LABS: BASO % 0.5 % (0-2.0); EOS % 1.7 % (0-4.5); HEMATOCRIT 32.7 % (32.4-45.2); HEMOGLOBIN 11.1 GM/dL (10.7-15.3); LYMPH % 18.1 % (8-40); MCH 31.9 pg (25.7-33.7); MCHC 33.9 g/dl (32.0-36.0); MEAN CELL VOLUME 94.1 fl (80-96); MEAN PLT VOLUME 7.6 fl (7.5-11.1); MONO % 5.9 % (3.8-10.2); NEUT % 73.8 % (42.8-82.8); PLATELET COUNT 195 10^3/uL (134-434); RBC 3.48 M/mm3 (3.60-5.2); RDW 14.9 % (11.6-15.6); WHITE BLOOD COUNT 11.5 K/mm3 (4.0-10.0)
[2022-08-03] MEDS: ACETAMINOPHEN 325 MG TABLET (FP) PO PRN ×2 (08:29→13:20)
[2022-08-03] MEDS: PRENATAL VITAMINS W/ FOLIC ACID TABLET (FP) PO SCH (10:07)
[2022-08-03] MEDS ORDERED: SENNOSIDES/DOCUSATE COMBO (SENNA PLUS) TABLET (UD) PO PRN (22:00)
[2022-08-04] MEDS: IBUPROFEN 600 MG TABLET (FP) PO PRN ×2 (04:15→11:45)
[2022-08-04] MEDS: oxyCODONE HCL 5 MG TABLET PO PRN (09:14)
[2022-08-04] MEDS: PRENATAL VITAMINS W/ FOLIC ACID TABLET (FP) PO SCH (09:15)
[2022-08-04 12:23] VITALS: BP 111/72; PULSE 67; TEMP 98.3
== END 2022-08-04 11:55 | disposition home or self-care (01) | DRG 807 ==
LOC: JDEL 22:25 → JLDR 23:00 → J3W 08-02 14:40
PROVIDERS: ADMIT Obstetrics & Gynecology; ATTEND Obstetrics & Gynecology
PROC: 10E0XZZ Delivery of Products of Conception, External Approach (ICD-10-PCS; principal; 2022-08-02)
PROC: 0W8NXZZ Division of Female Perineum, External Approach (ICD-10-PCS; 2022-08-02)
PROC: 0HQ9XZZ Repair Perineum Skin, External Approach (ICD-10-PCS; 2022-08-02)
DX: O70.9 Perineal laceration during delivery, unspecified (principal); Z3A.37 37 weeks gestation of pregnancy; Z37.0 Single live birth
CPT/HCPCS: 36415; 36600; 59409; 80048; 82803; 85025; 85610; 85730; 86780; 86850; 86900; 86901; 87389; C9803-CS; U0003; U0005

== ENCOUNTER 2024-01-19 04:31 | Day surgery (SDC) | payer BC ==
[2024-01-18 16:34] VITALS: BMI 24.5
[2024-01-19] MEDS ORDERED: oxyCODONE HCL 5 MG TABLET PO PRN ×2 (11:59→12:44)
[2024-01-19] MEDS ORDERED: ACETAMINOPHEN 325 MG TABLET (FP) PO PRN (11:59)
[2024-01-19] MEDS ORDERED: ONDANSETRON 4 MG/2 ML VIAL IVPUSH PRN ×2 (11:59→12:44)
[2024-01-19] MEDS ORDERED: LACTATED RINGERS SOLUTION 1,000 ML IV SCH (12:00)
[2024-01-19] MEDS ORDERED: IBUPROFEN 800 MG/8 ML IJ IVPB PRN (12:44)
[2024-01-19] MEDS ORDERED: IBUPROFEN 600 MG TABLET (FP) PO PRN (12:44)
[2024-01-19] MEDS ORDERED: ELECTROLYTE-148 SOLN 1,000 ML IV SCH (12:45)
[2024-01-19] MEDS: ceFAZolin SODIUM 1 GM VIAL IVPB ONE (12:50)
[2024-01-19 14:14] VITALS: BP 116/68; PULSE 51; RESP 18; TEMP 97.1
== END 2024-01-19 14:55 | disposition home or self-care (01) ==
LOC: JASU-SURG 04:31
PROVIDERS: ATTEND Obstetrics & Gynecology
PROC: 10D17ZZ Extraction of Products of Conception, Retained, Via Natural or Artificial Opening (ICD-10-PCS; principal; 2024-01-19 14:30)
DX: O03.4 Incomplete spontaneous abortion without complication (principal)
CPT/HCPCS: 88305-TC; 94760

== ENCOUNTER 2024-01-23 09:31 | Emergency (ER) | payer BC ==
[2024-01-23 09:48] VITALS: BP 104/66; PULSE 84; RESP 17; TEMP 98.1; BMI 24.2
[2024-01-23] MEDS ORDERED: METOCLOPRAMIDE HCL INJECTION 10 MG/2 ML VIAL ONE (11:13)
[2024-01-23] MEDS: METOCLOPRAMIDE HCL INJECTION 10 MG/2 ML VIAL IVPB ONE (11:27)
[2024-01-23] MEDS: LACTATED RINGERS SOLUTION 1000 ML INFUS.BAG IV ONE (11:50)
== END 2024-01-23 13:06 | disposition home or self-care (01) ==
LOC: JER 09:31
PROC: 3E033GC Introduction of Other Therapeutic Substance into Peripheral Vein, Percutaneous Approach (ICD-10-PCS; principal; 2024-01-23)
DX: G43.909 Migraine, unspecified, not intractable, without status migrainosus (principal); R11.2 Nausea with vomiting, unspecified; R10.13 Epigastric pain
CPT/HCPCS: 99284-25

== ENCOUNTER 2024-02-21 05:03 | Day surgery (SDC) | payer BC ==
[2024-02-20 09:11] VITALS: BMI 23.8
[2024-02-21] MEDS ORDERED: ONDANSETRON 4 MG/2 ML VIAL IVPUSH PRN ×2 (07:51→12:12)
[2024-02-21] MEDS ORDERED: oxyCODONE HCL 5 MG TABLET PO PRN ×2 (07:51→12:12)
[2024-02-21] MEDS ORDERED: ONDANSETRON 4 MG/2 ML VIAL ONE (10:16)
[2024-02-21] MEDS ORDERED: DEXAMETHASONE SOD PHOSPHATE 4 MG/1 ML VIAL ONE (10:16)
[2024-02-21] MEDS ORDERED: KETOROLAC TROMETHAMINE 30 MG/1 ML VIAL ONE (10:16)
[2024-02-21] MEDS ORDERED: PROPOFOL 40 ML ONE (10:16)
[2024-02-21] MEDS ORDERED: MIDAZOLAM HCL 2 MG/2 ML SINGLE DOSE VIAL ONE (10:16)
[2024-02-21] MEDS: IODINE/POTASSIUM IODIDE 5%/10% 14 ML BOTTLE NR ONE (11:03)
[2024-02-21] MEDS ORDERED: metroNIDAZOLE 0.75% VAGINAL GEL 70 GM TUBE ONE (11:11)
[2024-02-21] MEDS: FERRIC SUBSULFATE 500 ML BOTTLE TP ONE (11:15)
[2024-02-21] MEDS: metroNIDAZOLE 0.75% VAGINAL GEL 70 GM TUBE VG ONE (11:15)
[2024-02-21] MEDS: ACETAMINOPHEN 1000 MG/100 ML BAG IVPB ONE (12:09)
[2024-02-21] MEDS ORDERED: IBUPROFEN 600 MG TABLET (FP) PO PRN (12:12)
[2024-02-21] MEDS ORDERED: IBUPROFEN 800 MG/8 ML IJ IVPB PRN (12:12)
[2024-02-21] MEDS ORDERED: ELECTROLYTE-148 SOLN 1,000 ML IV SCH (12:15)
[2024-02-21] MEDS: LACTATED RINGERS SOLUTION 1,000 ML IV SCH (12:30)
[2024-02-21 13:02] VITALS: RESP 20
[2024-02-21 13:53] VITALS: BP 110/70; PULSE 59; TEMP 97
== END 2024-02-21 13:53 | disposition home or self-care (01) ==
LOC: JASU-SURG 05:03
PROVIDERS: ATTEND Obstetrics & Gynecology
PROC: 0UBC7ZX Excision of Cervix, Via Natural or Artificial Opening, Diagnostic (ICD-10-PCS; principal; 2024-02-21 10:30)
DX: D06.9 Carcinoma in situ of cervix, unspecified (principal)
CPT/HCPCS: 81025; 88305-TC; 88307-TC; 88341-TC; 88342-TC; 94760; J0131

== ENCOUNTER 2024-10-16 06:32 | Inpatient (IN) | payer BC ==
[2024-10-10 14:59] VITALS: BMI 23.5
[2024-10-16] MEDS ORDERED: ONDANSETRON 4 MG/2 ML VIAL IVPUSH PRN (09:57)
[2024-10-16] MEDS ORDERED: ACETAMINOPHEN INJECTION 100 ML ONE (10:02)
[2024-10-16] MEDS ORDERED: DEXAMETHASONE SOD PHOSPHATE 4 MG/1 ML VIAL ONE (10:51)
[2024-10-16] MEDS ORDERED: ROCURONIUM BROMIDE 50 MG/5 ML SYRINGE ONE (10:51)
[2024-10-16] MEDS ORDERED: MIDAZOLAM HCL 2 MG/2 ML SINGLE DOSE VIAL ONE (10:51)
[2024-10-16] MEDS ORDERED: PROPOFOL 20 ML ONE (10:51)
[2024-10-16] MEDS ORDERED: ROPIVACAINE HCL 0.5% 30ML VIAL ONE (11:39)
[2024-10-16] MEDS: ceFAZolin SODIUM 1 GM VIAL IVPB ONE (12:25)
[2024-10-16] MEDS ORDERED: ceFAZolin SODIUM 1 GM VIAL ONE (12:26)
[2024-10-16] MEDS ORDERED: HYDROmorphone HCl 2 MG/ML VIAL ONE (12:30)
[2024-10-16] MEDS ORDERED: ONDANSETRON 4 MG/2 ML VIAL ONE ×2 (12:44→13:41)
[2024-10-16] MEDS ORDERED: GLYCOPYRROLATE 0.2 MG/1 ML VIAL ONE (13:41)
[2024-10-16] MEDS ORDERED: NEOSTIGMINE METHYLSULFATE 0.5 MG/1 ML - 10 ML MDV ONE (13:41)
[2024-10-16] MEDS ORDERED: oxyCODONE HCL 5 MG TABLET PO PRN (14:10)
[2024-10-16] MEDS ORDERED: IBUPROFEN 800 MG/8 ML IJ IVPB PRN ×4 (14:10→14:16)
[2024-10-16] MEDS ORDERED: IBUPROFEN 600 MG TABLET (FP) PO PRN (14:10)
[2024-10-16] MEDS ORDERED: HYDROmorphone HCL CARPU-JECT 2 MG/1 ML DISP.SYRIN ONE (14:49)
[2024-10-16] MEDS: HYDROmorphone HCL CARPU-JECT 2 MG/1 ML DISP.SYRIN IVPUSH PRN (14:51)
[2024-10-16] MEDS: ELECTROLYTE-148 SOLN 1,000 ML IV SCH (16:11)
[2024-10-16] MEDS: LACTATED RINGERS SOLUTION 1,000 ML IV SCH (16:34)
[2024-10-16] MEDS: oxyCODONE HCL 5 MG TABLET PO PRN ×2 (17:02→21:19)
[2024-10-16] MEDS: CEFAZOLIN 2 GM/D5W 2 GM/50 ML ML IVPB SCH (18:07)
[2024-10-16] MEDS: ONDANSETRON 4 MG/2 ML VIAL IVPUSH PRN (19:45)
[2024-10-16] MEDS: IBUPROFEN 800 MG/8 ML IJ IVPB PRN (20:27)
[2024-10-16] MEDS: DOCUSATE SODIUM 100 MG CAPSULE (FP) PO SCH (21:37)
[2024-10-17] MEDS: morphine SULFATE 4 MG/ML VIAL IVPUSH ONE (03:00)
[2024-10-17 09:13] LABS: ABSOLUTE IMMATURE GRANULOCYTES 0.03 x10^3/uL (0.0-0.031); BASOPHILS # 0.02 x10^3/uL (0.01-0.08); EOSINOPHIL % 0.1 % (0.7-5.8); EOSINOPHILS # 0.01 x10^3/uL (0.04-0.36); HEMATOCRIT 38.2 % (34.1-44.9); HEMOGLOBIN 12.5 g/dL (11.2-15.7); MCHC 32.7 g/dl (32.2-35.5); MEAN CELL VOLUME 94.8 fl (79.4-94.8); MONOCYTE # 0.91 x10^3/uL (0.24-0.86); MONOCYTE % 8.1 % (4.7-12.5); RDW 11.7 % (12.1-16.8)
[2024-10-17] MEDS: ENOXAPARIN NA (PORCINE) 40 MG/0.4 ML DISP.SYRIN SQ SCH (09:30)
[2024-10-17] MEDS: SIMETHICONE 80 MG TAB.CHEW (FP) PO PRN (09:31)
[2024-10-17 09:38] LABS: POTASSIUM 4.6 mmol/L (3.5-5.1)
[2024-10-17 09:47] LABS: ALBUMIN 3.3 g/dl (3.4-5.0)
[2024-10-17 09:50] LABS: CREATININE 0.7 mg/dL (0.55-1.3)
[2024-10-17 09:51] LABS: BILIRUBIN,TOTAL 0.7 mg/dL (0.2-1)
[2024-10-17 09:52] LABS: TOT PROT 5.8 g/dl (6.4-8.2)
[2024-10-17 15:03] VITALS: BP 123/90; PULSE 72; RESP 18; TEMP 98.2
[2024-10-17 15:24] LABS: MEAN PLT VOLUME 9.6 fl (9.4-12.3); PLATELET COUNT 253 x10^3/uL (182-369)
== END 2024-10-17 17:18 | disposition home or self-care (01) | DRG 741 ==
LOC: J2C 06:32 → J8W 16:24
PROVIDERS: ADMIT Obstetrics & Gynecology; ATTEND Obstetrics & Gynecology
PROC: 0DNW0ZZ Release Peritoneum, Open Approach (ICD-10-PCS; 2024-10-16)
PROC: 0DNN0ZZ Release Sigmoid Colon, Open Approach (ICD-10-PCS; 2024-10-16)
PROC: 0UT90ZZ Resection of Uterus, Open Approach (ICD-10-PCS; principal; 2024-10-16 10:30)
PROC: 0UT70ZZ Resection of Bilateral Fallopian Tubes, Open Approach (ICD-10-PCS; 2024-10-16 10:30)
DX: D06.9 Carcinoma in situ of cervix, unspecified (principal); K66.0 Peritoneal adhesions (postprocedural) (postinfection)
CPT/HCPCS: 36415; 80053; 81025; 85025; 86850; 86900; 86901; 88305-TC; 88309-TC; 94010; 94760; J0131